=== PATIENT | male | born 1950 ===

== ENCOUNTER 2022-12-10 15:49 | Emergency (ER) | payer OTHER ==
[~2022-12-10] VITALS: Ht 165.1 cm; Wt 69.4 kg
[~2022-12-10 15:49] MED LIST: BIAXIN XL500 MG PO; COZAAR50 MG; PREDNISONE10 MG PO; PREDNISONE20 MG PO; PROVENTIL3 ML/2.5 M IH; TUSSIONEX PENNKI5 ML PO; XOPENEX1.25 MG/0. IH; ZITHROMAX500 MG PO
[2022-12-10] MEDS ORDERED: VALSARTAN-HCTZ1 EAC3 PO (15:58)
[2022-12-10] MEDS ORDERED: JANUMET 50-1,01 EACH PO (15:58)
[2022-12-10] MEDS ORDERED: TOPROL XL50 M1 (15:58)
[2022-12-10] MEDS ORDERED: AMLODIPINE-OLM1 EAC2 (15:59)
== END 2022-12-10 18:35 | disposition home or self-care (01) ==
LOC: ER 15:49
DX: K59.01 Slow transit constipation (principal); K29.70 Gastritis, unspecified, without bleeding